=== PATIENT | female | born 1950 | race Caucasian/White ===

== ENCOUNTER 2016-05-03 08:55 | Day surgery (SDC) | payer MEDICARE, OTHER ==
--- NOTE | ~2016-05-03 | EGD ---
EGD REPORT [facility] [address] [id number] NAME: DIANA BERMUDEZ : [birth year] STATUS : REG [facility] PAT#: [id number] AGE: 66 ADM/REG DATE : 05/03/16 MR#: [id number] REPORT SERV DATE: 05/03/16 DICTATED BY: MARLEN ESPINAL DATE: 05/03/16 REPORT STATUS : Draft TRANSCRIBED BY: [facility] DATE: 05/03/16 Endoscopy Center Patient Name: Diana Bermudez Date of : 1950 Attending MD: MARLEN ESPINAL MD Procedure Date No Time: 05/03/2016 Procedure: Colonoscopy Indications: Screening for colorectal malignant neoplasm, Last colonoscopy: February 2006 Referring MD: MAGALIE PUTNAM MD Medicines: See the Anesthesia note for documentation of the administered medications Complications: No immediate complications. Procedure: Pre-Anesthesia Assessment: - ASA Grade Assessment: III - A patient with severe systemic disease. After I obtained informed consent, the scope was passed under direct vision. Throughout the procedure, the patient's blood pressure, pulse, and oxygen saturations were monitored continuously. The [facility] [id number] was introduced through the anus and advanced to the terminal ileum, with identification of the appendiceal orifice and IC valve. The colonoscopy was performed without difficulty. The patient tolerated the procedure well. The quality of the bowel preparation was adequate. Findings: The perianal and digital rectal examinations were normal. Diverticula were found in the sigmoid colon. Internal hemorrhoids were found during retroflexion and were large. A sessile polyp was found in the sigmoid colon. The polyp was 8 mm in size. The polyp was removed with a cold snare. Resection and retrieval were complete. Impression: - Diverticulosis in the sigmoid colon. - Internal hemorrhoids. - One 8 mm polyp in the sigmoid colon. Resected and retrieved. Recommendation: - Patient has a contact number available for emergencies. The signs and symptoms of potential delayed complications were discussed with the patient. Return to normal activities tomorrow. Written discharge instructions were provided to the patient. - Regular diet. EGD REPORT [address] [address] NAME: DIANA BERMUDEZ : [birth year] STATUS : REG [facility] PAT#: [id number] AGE: 66 ADM/REG DATE : 05/03/16 MR#: [id number] REPORT SERV DATE: 05/03/16 DICTATED BY: MARLEN ESPINAL DATE: 05/03/16 REPORT STATUS : Draft TRANSCRIBED BY: [employer] DATE: 05/03/16 - Continue present medications. - Repeat colonoscopy for surveillance based on pathology results. - FOR YOUR BIOPSY RESULTS: Please go to [email or web address] and register to receive your results via the portal. Your biopsy results will be posted there in about 7 to 10 days. IF you do not see result in 10 days, call office. Procedure Code(s): --- Professional --- 73533, Colonoscopy, flexible, proximal to splenic flexure; with removal of tumor(s), polyp(s), or other lesion(s) by snare technique Diagnosis Code(s): --- Professional --- K64.8, Other hemorrhoids K57.30, Diverticulosis of large intestine without perforation or abscess without bleeding D12.5, Benign neoplasm of sigmoid colon Z12.11, Encounter for screening for malignant neoplasm of colon CPT copyright 2013 [employer]. All rights reserved. The codes documented in this report are preliminary and upon death surveys coder review may be revised to meet current compliance requirements. Marlen Espinal MD MARLEN ESPINAL MD 05/03/2016 10:52 AM This report has been signed electronically. Number of Addenda: 0 Note Initiated On: 05/03/2016 10:05 AM Scope Withdrawal Time 0 hours 6 minutes 45 seconds [id number] [id number]
--- NOTE | ~2016-05-03 | EGD ---
EGD REPORT [facility] [address] [id number] NAME: DIANA BERMUDEZ : [birth year] STATUS : REG [facility] PAT#: [id number] AGE: 66 ADM/REG DATE : 05/03/16 MR#: [id number] REPORT SERV DATE: 05/03/16 DICTATED BY: MARLEN ESPINAL DATE: 05/03/16 REPORT STATUS : Draft [facility]ANS[facility]IBED BY: [facility] DATE: 05/03/16 Endoscopy Center Patient Name: Diana Bermudez Date of : 1950 Attending MD: MARLEN ESPINAL MD Procedure Date No Time: 05/03/2016 Procedure: Upper GI endoscopy Indications: Gastro-esophageal reflux disease, Achalasia Referring MD: MAGALIE PUTNAM MD Medicines: See the Anesthesia note for documentation of the administered medications Complications: No immediate complications. Procedure: Pre-Anesthesia Assessment: - ASA Grade Assessment: III - A patient with severe systemic disease. After obtaining informed consent, the endoscope was passed under direct vision. Throughout the procedure, the patient's blood pressure, pulse, and oxygen saturations were monitored continuously. The [facility]IF H190 [id number] was introduced through the mouth, and advanced to the second part of duodenum. The upper GI endoscopy was accomplished without difficulty. The patient tolerated the procedure well. Findings: The examined duodenum was normal. Mild inflammation was found in the gastric antrum. Biopsies were taken with a cold forceps for histology. The cardia and gastric fundus were normal on retroflexion. There were esophageal mucosal changes suspicious for short-segment Hensley's esophagus present in the lower third of the esophagus. The maximum longitudinal extent of these mucosal changes was 1 cm in length. Biopsies were taken with a cold forceps for histology. Mildly dilated esophagus with no resistance at GE junction Impression: - Normal examined duodenum. - Gastritis. Biopsied. - Esophageal mucosal changes suspicious for short-segment Hensley's esophagus. Biopsied. - Mildly dilated esophagus with no resistance at GE junction Recommendation: - Patient has a contact number available for emergencies. The signs and symptoms of potential delayed complications were discussed with the patient. Return to EGD REPORT [address] [address] NAME: DIANA BERMUDEZ : [birth year] STATUS : REG [facility] PAT#: [id number] AGE: 66 ADM/REG DATE : 05/03/16 MR#: [id number] REPORT SERV DATE: 05/03/16 DICTATED BY: MARLEN ESPINAL DATE: 05/03/16 REPORT STATUS : Draft TRANSCRIBED BY: [employer] DATE: 05/03/16 normal activities tomorrow. Written discharge instructions were provided to the patient. - Regular diet. - Continue present medications. - Repeat the upper endoscopy in 3 years for surveillance. - FOR YOUR BIOPSY RESULTS: Please go to [email or web address] and register to receive your results via the portal. Your biopsy results will be posted there in about 7 to 10 days. IF you do not see result in 10 days, call office. Procedure Code(s): --- Professional --- 63568, Esophagogastroduodenoscopy, flexible, transoral; with biopsy, single or multiple Diagnosis Code(s): --- Professional --- K22.9, Disease of esophagus, unspecified K29.70, Gastritis, unspecified, without bleeding K21.9, Gastro-esophageal reflux disease without esophagitis CPT copyright 2013 [employer]. All rights reserved. The codes documented in this report are preliminary and upon advertising project manager review may be revised to meet current compliance requirements. Marlen Espinal MD MARLEN ESPINAL MD 05/03/2016 10:37 AM This report has been signed electronically. Number of Addenda: 0 Note Initiated On: 05/03/2016 10:26 AM Scope Withdrawal Time 0 hours 0 minutes 0 seconds [id number] [id number]
[~2016-05-03 08:55] MED LIST: ALLEGRA180 PO; ALVESCO INHALER INH; ASMANEX INH; FORADIL INH; LEVSINTAB PO; MULTI-VIT HP PO; MULTIPLE VIT PO; PRILO PO; PRILOSEC40 MG PO; SYN1; WELCHOL 625 MG625 MG PO; WELCHOL625 MG OR
== END 2016-05-03 23:59 | disposition home or self-care (01) ==
LOC: DMU 08:55
PROVIDERS: Internal Medicine Gastroenterology
PROC: 0D748ZZ Dilation of Esophagogastric Junction, Via Natural or Artificial Opening Endoscopic (ICD-10-PCS; 2016-05-03)
PROC: 0DBN8ZZ Excision of Sigmoid Colon, Via Natural or Artificial Opening Endoscopic (ICD-10-PCS; 2016-05-03)
PROC: 0DB68ZX Excision of Stomach, Via Natural or Artificial Opening Endoscopic, Diagnostic (ICD-10-PCS; principal; 2016-05-03 10:30)
PROC: 0DB38ZX Excision of Lower Esophagus, Via Natural or Artificial Opening Endoscopic, Diagnostic (ICD-10-PCS; 2016-05-03 10:30)
DX: Z12.11 Encounter for screening for malignant neoplasm of colon (principal); D12.5 Benign neoplasm of sigmoid colon; K29.50 Unspecified chronic gastritis without bleeding; K57.30 Diverticulosis of large intestine without perforation or abscess without bleeding; K64.8 Other hemorrhoids; K21.9 Gastro-esophageal reflux disease without esophagitis; K22.0 Achalasia of cardia; K22.9 Disease of esophagus, unspecified; R00.2 Palpitations; M19.90 Unspecified osteoarthritis, unspecified site; H26.9 Unspecified cataract; E03.9 Hypothyroidism, unspecified; J45.909 Unspecified asthma, uncomplicated; E78.00 Pure hypercholesterolemia, unspecified; Z90.49 Acquired absence of other specified parts of digestive tract; Z98.890 Other specified postprocedural states; Z98.891 History of uterine scar from previous surgery; Z79.899 Other long term (current) drug therapy
CPT/HCPCS: 88305; J2370